=== PATIENT | female | born 1985 | race Caucasian/White ===

== ENCOUNTER → 2017-07-03 | Outpatient (CLI) | payer OTHER | LOC: MC.RAD 08:28 | DX: N63.20 Unspecified lump in the left breast, unspecified quadrant (principal); E31.9 Polyglandular dysfunction, unspecified; E55.9 Vitamin D deficiency, unspecified; E28.2 Polycystic ovarian syndrome; F51.02 Adjustment insomnia; R53.82 Chronic fatigue, unspecified ==

== ENCOUNTER → 2017-12-21 | Outpatient (CLI) | payer OTHER ==
[2017-12-21 10:16] LABS: HEMATOCRIT 42.1 % (37.0-47.0); HEMOGLOBIN 13.9 g/dl (12.5-16.0); MEAN CELL VOLUME 89 fl (80.0-100.0); MEAN CORPUSCULAR HEMOGLOBIN 29 pg (27.0-31.0); MEAN CORPUSCULAR HGB CONC 33 g/dl (33.0-37.0); MEAN PLATELET VOLUME 10.3 fl (7.4-10.4); PLATELET COUNT 265 K/mm3 (130-400); RED BLOOD COUNT 4.72 M/mm3 (4.10-5.30); REDCELL DISTRIBUTION WIDTH-CV 11.9 % (11.5-14.5)
[2017-12-21 10:29] LABS: ALBUMIN 4.4 gm/dL (3.5-5.0); BILIRUBIN,TOTAL 0.4 mg/dL (0.0-1.0); CALCIUM 9.3 mg/dL (8.4-10.2); CREATININE, serum 0.89 mg/dL (0.52-1.25); POTASSIUM 4.2 mmol/L (3.4-5.0); TOTAL PROTEIN 7.7 gm/dL (6.4-8.2)
[2017-12-21 10:36] LABS: ERYTHROCYTE SEDIMENTATION RATE 8 mm/hr (0-20)
[2017-12-22 14:19] LABS: BASO # 0.1 (0.0-0.2); EOS # 0.1 (0.0-0.7); EOS % 2.2 % (0-4.0); GRAN # 2.7 (1.4-6.5); GRAN % 54.5 % (42.2-75.2); LYMPH # 1.7 (1.2-3.4); LYMPH % 35.4 % (20.0-51.0); MONO # 0.3 (0.1-0.6); MONO % 6.7 % (1.7-9.3)
== END ==
LOC: COL.LAB 09:55
PROVIDERS: Family Medicine
DX: R51 Headache (principal)

== ENCOUNTER 2020-08-02 07:01 | Inpatient (IN) | payer BC ==
[~2020-08-02] VITALS: Ht 162.6 cm; Wt 115.0 kg
[2020-08-02] VITALS (57 sets, daily range): BP systolic 115–149; BP diastolic 58–97; PULSE 74–131; TEMP 98–98.9
[2020-08-02] MEDS ORDERED: LEVOXYL0.075 MG PO (07:44)
[2020-08-02] MEDS ORDERED: PRENATAL TABLET PO (07:45)
[2020-08-02] MEDS ORDERED: IRON 27 MG PO (07:49)
[2020-08-02] MEDS ORDERED: OSCAL 500 TAB500 MG PO (07:51)
[2020-08-02 08:05] LABS: BASO % 0.3 % (0.0-2.0); EOS # 0.1 (0.0-0.7); EOS % 1.3 % (0-4.0); GRAN # 4.4 (1.4-6.5); HEMATOCRIT 39.2 % (37.0-47.0); HEMOGLOBIN 13.2 g/dl (12.5-16.0); LYMPH # 2.1 (1.2-3.4); LYMPH % 29.1 % (20.0-51.0); MEAN CELL VOLUME 85 fl (80.0-100.0); MEAN CORPUSCULAR HEMOGLOBIN 29 pg (27.0-31.0); MEAN CORPUSCULAR HGB CONC 34 g/dl (33.0-37.0); MEAN PLATELET VOLUME 10.9 fl (7.4-10.4); MONO # 0.5 (0.1-0.6); MONO % 6.3 % (1.7-9.3); PLATELET COUNT 246 K/mm3 (130-400); RED BLOOD COUNT 4.62 M/mm3 (4.10-5.30); REDCELL DISTRIBUTION WIDTH-CV 14.3 % (11.5-14.5)
--- NOTE | 2020-08-02 08:05 | NUR ---
PT HERE FOR INDUCTION OF LABOR. PLAN OF CARE REVIEWED. FHT'S FOUND IN THE 140'S WITH MODERATE VARIABILITY AND ACCELS. IV STARTED IN LEFT HAND WITH LR INFUSING WITHOUT DIFFICULTY. ASSESSMENT COMPLETED.
--- NOTE | 2020-08-02 08:30 | NUR ---
DR LUURE IN AT 0818 AND DISCUSSES PLAN OF CARE WITH PT. WILL COME BACK AND BREAK WATER OVER LUNCH BREAK. PITOCIN AT 4MU AT 0830.
--- NOTE | 2020-08-02 11:30 | NUR ---
DR GREER IN AT 1127. SVE /-3. AROM AT 1129 WITH CLEAR FLUID.
--- NOTE | 2020-08-02 12:15 | NUR ---
PT UP TO BATHROOM. OFF MONITOR FOR 10 MINUTES. SITTING ON BIRTHING BALL AFTER BATHROOM AND DIFFICULT TO MONITOR FHT'S. PT ENCOURAGED TO BREATHE THROUGH CONTRACTIONS. ALTERNATES BETWEEN SITTING AND STANDING AND CONTINUES TO BE DIFFICULT TO MONITOR FHT'S. CAN AUDIBLY HEAR HEART TONES IN THE 140'S.
--- NOTE | 2020-08-02 12:45 | NUR ---
PT CRYING AND HAVING TROUBLE BREATHING THROUGH CONTRACTIONS. WANTS AN EPIDURAL. Twin RON CRNA, IN AT [address] EPIDURAL. UNABLE TO MONITOR FHT'S DURING EPIDURAL. SINGLE SHOT AT 1300 WITH NO ADVERSE SIDE EFFECTS OBSERVED OR REPORTED.
--- NOTE | 2020-08-02 13:00 | NUR ---
UNABLE TO MONITOR FHT'S DURING EPIDURAL.
--- NOTE | 2020-08-02 13:00 | NUR ---
PT STRUGGLING TO BREATHE THROUGH CONTRACTIONS AND CRYING. CALLED KIKO FERRARA, TO PLACE EPIDURAL-ARRIVES AT 1253 AND SINGLE SHOT AT 1300 WITH NO ABNORMAL SYMPTOMS REPORTED OR OBSERVED.
--- NOTE | 2020-08-02 13:30 | NUR ---
PT RESTING IN BED. REPORTS FEELING MUCH BETTER. SVE /-2. PHONED DR GREER AT 1330 WITH UPDATE ON SVE AND THAT PT HAS RECEIVED AN EPIDURAL.
--- NOTE | 2020-08-02 14:15 | NUR ---
MURGUIA CATHETER PLACED WITH CLEAR YELLOW URINE RETURNED. SVE /-2. REPOSITIONED WEDGE LEFT WITH PEANUT BALL.
--- NOTE | 2020-08-02 15:45 | NUR ---
DR GREER IN AT 1545. SVE /-1. PT REPOSITIONED RIGHT LATERAL WITH LEFT LEG IN STIRRUP.
--- NOTE | 2020-08-02 16:02 | NUR ---
UNABLE TO MONITOR CONTRACTIONS ADEQUATELY IN THIS POSITION. REPOSITIONED TOCO.
--- NOTE | 2020-08-02 16:30 | NUR ---
REPOSITIONED TO LEFT LATERAL WITH RIGHT LEG IN STIRRUP. PT REPORTS FEELING MORE PRESSURE WITH CONTRACTIONS. READJUSTED TOCO TO TRY TO MONITOR CONTRACTIONS
--- NOTE | 2020-08-02 17:00 | NUR ---
DR GREER IN AT 1658. SVE /0. PT REPOSITIONED WEDGE RIGHT WITH PEANUT BALL.
--- NOTE | 2020-08-02 18:00 | NUR ---
SVE /0. CALLED DR GREER WITH SVE UPDATE AT 1800
--- NOTE | 2020-08-02 19:00 | NUR ---
1899- Pushing instructions reviewed and pushing started.
--- NOTE | 2020-08-02 21:05 | NUR ---
2050- Dr. Schroeder at the bedside and pushing with pt. 2052- Pt set up for delivery. 2104- of head. Shoulder maneuvers done with head of bed flat and Olman and delivery of body followed. Cords clamped and cut. Care of the given to nursery RN at the bedside. 2136- of placenta. Fundus firm and lochia WNL per Dr. Schroeder. Pitocin started at 333ml/hr per order and protocol.
[2020-08-03 00:25] VITALS: BP 122/58; PULSE 109
--- NOTE | 2020-08-03 00:45 | NUR ---
Pt up to the bathroom with stanby assist and without complications. Pt was not able to void. Sarah Beth-care done. Pt transferred to room 215 via wheelchair. Oriented to room, bed and call light within reach. Plan of care reviewed.
[2020-08-03 01:15] VITALS: BP 128/68; PULSE 75; TEMP 98.2
--- NOTE | 2020-08-03 01:30 | NUR ---
Pt up to the bathroom. Pt was not able to void. Sarah Beth-care done.
--- NOTE | 2020-08-03 02:00 | NUR ---
Lynn placed due to swelling and pt unable to void after multiple attempts.
[2020-08-03 04:17] VITALS: BP 117/64; PULSE 87; TEMP 98.1
[2020-08-03 09:04] VITALS: BP 130/88; PULSE 111; TEMP 97.7
--- NOTE | 2020-08-03 11:00 | NUR ---
1100FOLEY REMOVED. PT TOLERATED WELL. DENITA CAR PROVIDED.
[2020-08-03 16:00] VITALS: BP 123/74; PULSE 92; TEMP 97.8
--- NOTE | 2020-08-03 19:30 | NUR ---
PT WANTS TO START PUMPING- PUMP IS SET UP, DISH SOAP,TUB AND TOWEL GIVEN FOR CLEANING PUMP PARTS. ENCOURAGED MOM TO DO SKIN TO SKIN. PUMPING GOES WELL MOM IS SO HAPPY, sHE STATES 'NOW I DON'T FEEL LIKE A FAILURE" ENCOURAGED MOM TO WORK TOWARDS A PLAN THAT WILL WORK FOR THEM AT HOME.
[2020-08-03 20:00] VITALS: BP 133/88; PULSE 110; TEMP 97.9
[2020-08-04 08:22] VITALS: BP 120/84; PULSE 107; TEMP 97.7
[2020-08-04] MEDS ORDERED: PERCOCET 325 MG1 TA2 PO (09:51)
[2020-08-04] MEDS ORDERED: IBU800 M1 PO (09:51)
== END 2020-08-04 15:35 | disposition home or self-care (01) | DRG 542 ==
LOC: LDR 07:01 → OB 09:03
PROVIDERS: ADMIT Student in an Organized Health Care Education/Training Program
PROC: 10E0XZZ Delivery of Products of Conception, External Approach (ICD-10-PCS; principal; 2020-08-02)
PROC: 0DQR0ZZ Repair Anal Sphincter, Open Approach (ICD-10-PCS; 2020-08-02)
PROC: 10907ZC Drainage of Amniotic Fluid, Therapeutic from Products of Conception, Via Natural or Artificial Opening (ICD-10-PCS; 2020-08-02)
PROC: 3E033VJ Introduction of Other Hormone into Peripheral Vein, Percutaneous Approach (ICD-10-PCS; 2020-08-02)
DX: O48.0 Post-term pregnancy (principal); Z37.0 Single live birth; O70.20 Third degree perineal laceration during delivery, unspecified; Z3A.40 40 weeks gestation of pregnancy; O99.284 Endocrine, nutritional and metabolic diseases complicating childbirth; E28.2 Polycystic ovarian syndrome; O99.214 Obesity complicating childbirth; E66.9 Obesity, unspecified; O66.0 Obstructed labor due to shoulder dystocia; E03.9 Hypothyroidism, unspecified; O69.1XX0 Labor and delivery complicated by cord around neck, with compression, not applicable or unspecified; O99.893 Other specified diseases and conditions complicating puerperium; R33.9 Retention of urine, unspecified
CPT/HCPCS: J2590; J7120

== ENCOUNTER → 2020-08-02 | Outpatient (CLI) | payer BC ==
[~2020-08-02] MED LIST: IBU800 M1 PO; IRON 27 MG PO; LEVOXYL0.075 MG PO; LEXAPRO 10MG10 MG PO; OSCAL 500 TAB500 MG PO; PEPCID 20MG TAB20 MG PO; PERCOCET 325 MG1 TA2 PO; PRENATAL TABLET PO; PRIL40 PO; ZOFRAN8 MG PO
== END | disposition still patient (30) ==
LOC: ZCOL.LAB
DX: Z20.822 Contact with and (suspected) exposure to COVID-19 (principal)

== ENCOUNTER 2020-08-21 14:45 | Emergency (ER) | payer BC ==
[~2020-08-21] VITALS: Ht 162.6 cm; Wt 100.5 kg
[~2020-08-21 14:45] MED LIST changes: -LEXAPRO 10MG10 MG PO; -PEPCID 20MG TAB20 MG PO; -PRIL40 PO; -ZOFRAN8 MG PO
[2020-08-21 15:02] VITALS: TEMP 97.5
[2020-08-21 16:03] LABS: COLLECTION METHOD CLEAN CATCH
[2020-08-21 16:05] LABS: BASO % 0.9 % (0.0-2.0); EOS # 0.1 (0.0-0.7); EOS % 1.5 % (0-4.0); GRAN # 2.2 (1.4-6.5); GRAN % 46.5 % (42.2-75.2); HEMATOCRIT 38.8 % (37.0-47.0); HEMOGLOBIN 12.4 g/dl (12.5-16.0); LYMPH % 43.6 % (20.0-51.0); MEAN CELL VOLUME 87 fl (80.0-100.0); MEAN CORPUSCULAR HEMOGLOBIN 28 pg (27.0-31.0); MEAN CORPUSCULAR HGB CONC 32 g/dl (33.0-37.0); MEAN PLATELET VOLUME 9.7 fl (7.4-10.4); MONO # 0.3 (0.1-0.6); MONO % 7.1 % (1.7-9.3); PLATELET COUNT 415 K/mm3 (130-400); RED BLOOD COUNT 4.44 M/mm3 (4.10-5.30); REDCELL DISTRIBUTION WIDTH-CV 13.5 % (11.5-14.5)
[2020-08-21 16:10] LABS: PH 6 (5-8); SQUAMOUS EPITHELIAL 0-2 /hpf; URINE APPEARANCE Clear; URINE BACTERIA None Seen /hpf; URINE BILIRUBIN Negative (NEGATIVE); URINE BLOOD 3+ (NEGATIVE); URINE COLOR Straw; URINE GLUCOSE Negative (NEGATIVE); URINE KETONE Negative (NEGATIVE); URINE LEUKOCYTE ESTERASE Trace (NEGATIVE); URINE NITRATE Negative (NEGATIVE); URINE PROTEIN(semi-quant) Negative (NEGATIVE); URINE UROBILINOGEN Negative (NEGATIVE)
[2020-08-21 16:20] LABS: ALANINE AMINOTRANSFERASE 19 U/L (4-34); ALBUMIN 4.2 gm/dL (3.5-5.0); ALKALINE PHOSPHATASE 80 U/L (50-136); ANION GAP 9 mmol/L (7-16); AST,SGOT 19 U/L (15-37); BILIRUBIN,TOTAL < 0.1 mg/dL (0.0-1.0); BLOOD UREA NITROGEN 6 mg/dL (7-17); C-REACTIVE PROTEIN 1.9 mg/dL (0.0-0.9); CALCIUM 9.4 mg/dL (8.4-10.2); CARBON DIOXIDE 27 mmol/L (22-30); CHLORIDE 104 mmol/L (98-107); CREATININE, serum 0.93 (0.52-1.25); GLUCOSE 91 mg/dL (74-106); SODIUM 140 mmol/L (137-145)
[2020-08-21 17:15] VITALS: BP 120/68; PULSE 81
[2020-08-21 22:17] LABS: CLOSTRIDIUM DIFF A/B NEG; CLOSTRIDIUM DIFF A/B INTERP No C.diff present
== END 2020-08-21 17:21 | disposition home or self-care (01) ==
LOC: COL.ER 14:45
PROVIDERS: Nurse Practitioner
DX: O90.9 Complication of the puerperium, unspecified (principal); R19.7 Diarrhea, unspecified; R11.0 Nausea; Z88.8 Allergy status to other drugs, medicaments and biological substances
CPT/HCPCS: J2405; J7030

== ENCOUNTER 2020-08-23 13:49 | Observation (INO) | payer BC ==
[~2020-08-23] VITALS: Ht 162.6 cm; Wt 99.5 kg
[2020-08-23 14:18] VITALS: BP 122/73; PULSE 63; TEMP 98.2
[2020-08-23 14:28] LABS: BASO # 0.1 (0.0-0.2); BASO % 0.9 % (0.0-2.0); EOS % 0.7 % (0-4.0); GRAN # 2.7 (1.4-6.5); GRAN % 50.4 % (42.2-75.2); HEMATOCRIT 38.5 % (37.0-47.0); HEMOGLOBIN 12.5 g/dl (12.5-16.0); LYMPH # 2.2 (1.2-3.4); LYMPH % 41.2 % (20.0-51.0); MEAN CELL VOLUME 87 fl (80.0-100.0); MEAN CORPUSCULAR HEMOGLOBIN 28 pg (27.0-31.0); MEAN CORPUSCULAR HGB CONC 33 g/dl (33.0-37.0); MEAN PLATELET VOLUME 9.7 fl (7.4-10.4); MONO # 0.4 (0.1-0.6); MONO % 6.4 % (1.7-9.3); PLATELET COUNT 418 K/mm3 (130-400); RED BLOOD COUNT 4.45 M/mm3 (4.10-5.30); REDCELL DISTRIBUTION WIDTH-CV 13.7 % (11.5-14.5)
[2020-08-23 14:45] LABS: ALBUMIN 4.2 gm/dL (3.5-5.0); BILIRUBIN,TOTAL 0.1 mg/dL (0.0-1.0); CALCIUM 9.4 mg/dL (8.4-10.2); CREATININE, serum 1.02 (0.52-1.25); POTASSIUM 3.9 mmol/L (3.4-5.0); TOTAL PROTEIN 7.8 gm/dL (6.4-8.2)
[2020-08-23] MEDS ORDERED: PRIL40 PO (15:00)
[2020-08-23] MEDS ORDERED: LEXAPRO 10MG10 MG PO (15:01)
[2020-08-23] MEDS ORDERED: ZOFRAN8 MG PO (15:03)
[2020-08-23] MEDS ORDERED: PEPCID 20MG TAB20 MG PO (15:04)
[2020-08-23 16:28] VITALS: BP 119/85; PULSE 82
--- NOTE | 2020-08-23 16:52 | NUR ---
Report called to MAKSIM Lim and Olive Osullivan Student. They request 15 mins before pt is taken to floor. She will be taken by wheelchair.
--- NOTE | 2020-08-23 18:00 | NUR ---
Pt taken with personal belongings to rm 353 by wheelchair. Continues to report nausea. Has been able to take sips of water, and has been up to void x3 during time in EU.
--- NOTE | 2020-08-23 19:00 | NUR ---
PATIENT ADMISSION COMPLETE. WILL REPORT OFF TO NIGHT NURSE.
--- NOTE | 2020-08-23 20:30 | NUR ---
Initial shift assessment done- denies nausea/vomiting/diarrhea at this -- knows we need a stool specimen if she has a BM tonight- NPO at this time-- going for a CT of the abd/pelvis at this time, IV fluids of NS at 125cc/hr -- mom,pumping while in hospital, states she will not save milk tonight since having contrast with the CT-
[2020-08-23 22:15] VITALS: BP 118/68; PULSE 47; TEMP 97.5
[2020-08-24] VITALS (7 sets, daily range): BP systolic 89–121; BP diastolic 44–69; PULSE 55–82; TEMP 97.9–98.6
--- NOTE | 2020-08-24 06:00 | NUR ---
Quiet night- did not require any meds for nausea/vomiting,no diarrhea, states slept " more than she has for the past couple weeks" IV fluids remain at 125cc/hr, did have about 150cc in of oral fluids throughout the night- just few sips at a time, VSS
--- NOTE | 2020-08-24 08:45 | NUR ---
Assesment completed. Patient alert and oriented x4. Patient expresses generalized full body soreness. v/s stable, lung mendenhall clear and equal bilat. Heart sounds regular. Explain NPO status. Px expresses no additional needs at this time.
--- NOTE | 2020-08-24 09:22 | NUR ---
Construction Services Technician attended clinical rounds with the team. The patient's was present. The patient has been nauseous, vomiting, and diarrhea. The team will try to advance the patient's diet to see how she tolerates the diet change.
--- NOTE | 2020-08-24 14:03 | NUR ---
Primary nurse was assisted with [phone] patient care by [employer] student Kiki Castillo and [employer] instructor Tessa Crowell MSN, RN.
--- NOTE | 2020-08-24 14:06 | NUR ---
Video Rental Clerk met with the patient to complete intake. The patient lives in [place] with her . The patient denies DME use and is independent. The patient's PCP is Dr. Mallory and patient receives medications from [facility]. The patient does not have advanced directives and was not interested in DPOA-HC form at this time. The patient plans to return home with her at discharge. Discharge disposition: Home with
--- NOTE | 2020-08-24 18:21 | NUR ---
Px. tolerating advancement of diet well. Px. expresses no further needs at this time. Call light in reach.
--- NOTE | 2020-08-24 20:00 | NUR ---
Report received, assumed care for plant operator/shift supervisor. Assessment complete. A&Ox3 Denies pain/nausea/shortness of breath. VS stable. States she does have "waves" of nausea but states she cant tell if its due to hunger. Asking questions about EGD. States she would like to have this done. After this nurse read through progress notes-notified Hospitalist-SHANTANU Bean. Will come to speak with patient about options. Plan of care discussed for this shift to include HS meds/calling for nausea/pain. Verbalizes understanding/denies current needs. Call light in reach. will monitor.
--- NOTE | 2020-08-24 22:10 | NUR ---
Called stating IV to left AC was hurting. Noted to be red at site-no swelling. Flushes without diffficulty but requesting IV site change. Restarted in righ [id number] attempt. Tolerated well. Will monitor.
[2020-08-25 04:02] VITALS: BP 118/62; PULSE 62; TEMP 98.1
--- NOTE | 2020-08-25 05:11 | NUR ---
Attempt made to get consent form signed for EGD @0800. States she doesnt want to sign it until she speaks with Dr. Neal. Consent unsigned and on front of chart. Will let day shift know in bedside report need for signing. Has remained NPO since midnight. Will continue to monitor.
[2020-08-25 06:36] LABS: BASO # 0.1 (0.0-0.2); BASO % 1.3 % (0.0-2.0); EOS # 0.1 (0.0-0.7); EOS % 2.5 % (0-4.0); GRAN # 1.8 (1.4-6.5); GRAN % 37.5 % (42.2-75.2); HEMOGLOBIN 11.5 g/dl (12.5-16.0); LYMPH # 2.5 (1.2-3.4); LYMPH % 51.9 % (20.0-51.0); MEAN CELL VOLUME 89 fl (80.0-100.0); MEAN CORPUSCULAR HEMOGLOBIN 28 pg (27.0-31.0); MEAN CORPUSCULAR HGB CONC 32 g/dl (33.0-37.0); MEAN PLATELET VOLUME 10.1 fl (7.4-10.4); MONO # 0.3 (0.1-0.6); MONO % 6.6 % (1.7-9.3); PLATELET COUNT 335 K/mm3 (130-400); RED BLOOD COUNT 4.08 M/mm3 (4.10-5.30)
[2020-08-25 06:38] LABS: HEMATOCRIT 36.1 % (37.0-47.0)
[2020-08-25 06:47] LABS: CALCIUM 8.6 mg/dL (8.4-10.2); CREATININE, serum 0.9 (0.52-1.25); POTASSIUM 3.6 mmol/L (3.4-5.0)
--- NOTE | 2020-08-25 07:30 | NUR ---
Patient is going down for her EGD. Patient denies nausea this morning. She stated she is still having some loose stools. She is worried about what they will find with the procedure. No other changes at this time. Consent is on the chart but not signed, she wanted to speak with Dr Neal before signing. No other changes at this time.
--- NOTE | 2020-08-25 08:40 | NUR ---
Patient is back from her procedure. Dr Neal spoke with the patient and her . Patient is alert and oriented. Denies pain and nausea at this time. is at bedside. No other changes at this time. Call light within reach.
[2020-08-25] MEDS ORDERED: LEVOXYL0.075 MG PO (09:27)
[2020-08-25 11:57] VITALS: BP 123/78; PULSE 86; TEMP 97.6
--- NOTE | 2020-08-25 13:30 | NUR ---
Patient started to have some nausea/vomiting. She only had one incident after eating. Discussed taking zofran to see if it helps. Explained it could be the anesthesia since she ate once this morning without nausea. She was very upset and crying because she stated she wants to go home. Her is on his way back for her. Will get new order for zofran, IV zofran was discontinued. No other changes at this time. Patient denies pain. Call light within reach.
--- NOTE | 2020-08-25 15:00 | NUR ---
Patients nausea is better. She asked about being discharged home, she stated she wanted to leave. Her H Pylori was negative and patient is aware. Discussed sticking to softer, easy foods at home. Explained when follow up appointment is with her primary doctor. Discussed her nausea medication and how often to take it. No other questions verbalized. INT discontinued. Copies of discharge instructions sent with patient. All belongings packed up by . Patient walked out via wheel chair by Jose Roberto HERNANDEZ.
== END 2020-08-25 15:10 | disposition home or self-care (01) ==
LOC: EUO 13:49 → MEDICAL 16:37
PROVIDERS: Family Medicine; Physician Assistant; ADMIT Hospitalist
DX: K20.80 Other esophagitis without bleeding (principal); Q39.8 Other congenital malformations of esophagus; R19.7 Diarrhea, unspecified; F53.0 Postpartum depression; E28.2 Polycystic ovarian syndrome; E03.9 Hypothyroidism, unspecified; E66.8 Other obesity; Z20.822 Contact with and (suspected) exposure to COVID-19; Z88.8 Allergy status to other drugs, medicaments and biological substances; Z79.899 Other long term (current) drug therapy; Z79.890 Hormone replacement therapy; Z90.89 Acquired absence of other organs; Z68.41 Body mass index [BMI] 40.0-44.9, adult
CPT/HCPCS: 99239; C9113; G0378; G0379; J2405; J2704; J3010; J7030

== ENCOUNTER → 2020-09-13 | Outpatient (CLI) | payer BC ==
[~2020-09-13] MED LIST changes: +LEXAPRO 10MG10 MG PO; +PEPCID 20MG TAB20 MG PO; +PRIL40 PO; +ZOFRAN8 MG PO
== END ==
LOC: COL.RAD 09-07 07:30
DX: R10.11 Right upper quadrant pain (principal)
CPT/HCPCS: A9537; J2805

== ENCOUNTER 2022-10-17 10:25 | Day surgery (SDC) | payer BC ==
[2022-10-17] VITALS (7 sets, daily range): BP systolic 118–128; BP diastolic 70–82; PULSE 72–102; TEMP 97.1–98
[~2022-10-17] VITALS: Ht 162.6 cm; Wt 109.1 kg
[2022-10-17] MEDS ORDERED: CYMBALTA 30MG30 MG PO (11:20)
[2022-10-17] MEDS ORDERED: SYNTHROID0.05 MG/TA PO (11:20)
[2022-10-17] MEDS ORDERED: MOTRIN 600600 MG/TAB PO (12:55)
[2022-10-17] MEDS ORDERED: NORCO 325 MG-51 TAB PO (12:55)
--- NOTE | 2022-10-17 20:13 | NUR ---
[id number]: PT TO RECOVERY BAY 7 FROM PACU S/P ROBOTIC LAP MATY ARRIVES AWAKE, C/O MODERATE GEN ABD PAIN/CRAMPING THAT IS RISING IN ABDOMEN SINCE IN PACU, HAS NOT RESPONDED TO IV DILAUDID, C/O MILD NAUSEA, PROVIDED SIPS AND CHIPS. ED ON POST-LAP GAS PAIN, WARM BLANKETS REFRESHED, ENCOURAGED TO DEEP BREATHE AND REPOSITION - VUI. AT BEDSIDE, PROVIDING EMOTIONAL SUPPORT. PLACED ON MONITOR, VSS ON RA. PT APPEARS ANXIOUS ABOUT POST OP PAIN/RECOVERY - REASSURED. 5 TROCAR SITES CLOSED WITH GLUE -CDI RECEIVED REPORT AND ASSUMED CARE OF PT FROM MAKSIM PADILLA AMBULATED TO BR WITH STEADY GAIT AND BACK, REPORTING MILD RELEIF OF ABD PAIN. LATER C/O SIGNIFICANT NAUSEA, NO VOMITING - GIVEN 4MG IV ZOFRAN AND NON-PHARM COMFORT MEASURES (COOL WASHCLOTH, FAN, ISOPROPOL SWABS, DECREASED STIM AND REASSURANCE), LATER SPRITE AND SODA CRACKERS, WITHOUT SIGNIFICANT RELIEF. C/O INCREASING ABD/SUB-DIAPHRAGM PAIN, PALLIATIVE OPTIONS DISCUSSED, ULTIMATELY GIVEN 25MCG IV FENTANYL, WHICH SIGNIFICANTLY RELIEVED BOTH PAIN AND NAUSEA. PT L&O, NAD, VSS ON RA, TOLERATING PO, IS WITHOUT SIGNIFICANT COMPLAINT, WITH STEADY GAIT FOR REMAINDER OF STAY IV D/C'D. D/C INSTRUCTIONS, ANY FOLLOW UP REVIEWED AND HANDED TO PT. ALL QUESTIONS AND CONCERNS ADDRESSED TO PT SATISFACTION. TAKEN TO EXIT VIA W/C WITH ALL BELONGINGS AND PAPERWORK IN HAND, ASSISTED INTO PASSENGER SEAT OF POV. SPOUSE TO DRIVE HOME.
== END 2022-10-17 17:40 | disposition home or self-care (01) ==
LOC: SDCO 10:25
DX: K80.64 Calculus of gallbladder and bile duct with chronic cholecystitis without obstruction (principal); K82.1 Hydrops of gallbladder; Z28.310 Unvaccinated for COVID-19
CPT/HCPCS: J0690; J1100; J1170; J1200; J1885; J2405; J2704; J3010; J7120; Q9967